=== PATIENT | female | born 1960 | race Caucasian/White ===

== ENCOUNTER 2018-04-26 07:18 | Emergency (ER) | payer OTHER ==
[~2018-04-26] VITALS: Ht 157.5 cm; Wt 74.8 kg
[2018-04-26 07:27] VITALS: BP 133/86
[2018-04-26] MEDS ORDERED: KEFLEX500 M1 PO (07:32)
[2018-04-26] MEDS ORDERED: IBUPROFEN 800800 MG PO (07:32)
== END 2018-04-26 07:40 | disposition home or self-care (01) ==
LOC: M.ERS 07:18
DX: L72.3 Sebaceous cyst (principal); F17.210 Nicotine dependence, cigarettes, uncomplicated

== ENCOUNTER 2019-01-25 19:43 | Emergency (ER) | payer OTHER ==
[~2019-01-25] VITALS: Ht 157.5 cm; Wt 74.8 kg
[~2019-01-25 19:43] MED LIST: IBUPROFEN 800800 MG PO; KEFLEX500 M1 PO
[2019-01-25] MEDS ORDERED: TRAMADOL 50 MG50 MG PO (21:32)
[2019-01-25 21:59] VITALS: BP 133/76
== END 2019-01-25 22:01 | disposition home or self-care (01) ==
LOC: M.ERS 19:43
DX: S52.135A Nondisplaced fracture of neck of left radius, initial encounter for closed fracture (principal); W18.09XA Striking against other object with subsequent fall, initial encounter; Y93.89 Activity, other specified; Y92.89 Other specified places as the place of occurrence of the external cause; Y99.8 Other external cause status